=== PATIENT | female | born 1965 | race Caucasian/White ===

== ENCOUNTER 2019-01-08 11:44 | Day surgery (SDC) | payer MEDICARE, MEDICAID ==
[~2019-01-08] VITALS: Ht 157.5 cm; Wt 120.5 kg
[~2019-01-08 11:44] MED LIST: ABILIFY15 MG PO; DESERYL100 MG PO; PAXIL10 MG; PROTONIX20 MG PO
[2019-01-08 12:42] LABS: HEMATOCRIT 38.2 % (36.0-48.0); MCV 85.1 fL (80.0-100.0); MEAN PLATELET VOLUME 10.5 fL (7.4-10.4); RBC 4.49 10x6/uL (4.00-5.40); RDW 13.5 % (11.5-14.5); WBC 5.4 10x3/uL (4.8-10.8)
[2019-01-08] MEDS ORDERED: PEPCID40 MG (12:56)
[2019-01-08] MEDS ORDERED: TRIGLIDE160 MG PO (12:57)
[2019-01-08] MEDS ORDERED: SYNTHROID112 MCG PO (12:57)
[2019-01-08] MEDS ORDERED: PRAVACHOL40 MG PO (12:58)
[2019-01-08] MEDS ORDERED: LISINOPRIL40 MG (12:58)
[2019-01-08 13:17] VITALS: BP 130/56; Ht 157.5 cm; Wt 120.5 kg
--- NOTE | 2019-01-08 15:39 | NUR ---
1525 IV REMOVED INSTRUCTIONS GIVEN
--- NOTE | 2019-01-11 07:40 | OP ---
PATIENT NAME: ALEX ANGULO MEDICAL RECORD: [id number] :65 LOCATION:[facility] ADMISSION DATE: SURGEON: DANILO SCHNEIDER DO DATE OF OPERATION: 01/08/2019 PROCEDURE: EGD with biopsies. INDICATIONS FOR PROCEDURE: An 8 week followup of esophageal ulcers and gastric ulcers. SCOPE: Olympus video gastroscope. MEDICATIONS: Propofol 220 mg IV per anesthesia. ESTIMATED BLOOD LOSS: Minimal. COMPLICATIONS: None. FINDINGS: Informed consent was given. The patient was made comfortable with the above medication. After reaching an adequate level of sedation by slow IV push, the patient was placed in the left side. The endoscope was advanced under direct visualization through the mouth to the second portion of the duodenum. The entire esophagus appeared normal. At the GE junction, the previously identified ulcers appeared healed. There were some minor reflux changes consistent with LA class A reflux-induced esophagitis. The endoscope was advanced beyond the GE junction into the stomach and retroflexed to view the cardia, which revealed a small sliding hiatal hernia. There were no associated ulcerations with this hernia. The fundus and body of the stomach appeared normal. As you approached the antrum and prepyloric regions of the stomach, there was some erythema and granularity consistent with gastritis. There were no ulcers visualized. Random cold forceps biopsies were taken from the antrum and incisura to rule out the presence of H. pylori and to submit for histopathology. The endoscope was advanced beyond the pylorus into the duodenum, which appeared normal down to the second portion. The endoscope was withdrawn from the patient. The patient tolerated the procedure well and there were no complications. IMPRESSION: 1. LA class A reflux-induced esophagitis. 2. Small sliding hiatal hernia. 3. Mild gastritis of the antrum and prepyloric region. PLAN AND RECOMMENDATIONS: 1. Discharge home when recovery parameters are met. 2. GERD diet and reflux precautions. 3. Continue current medications. 4. Follow up in GI clinic as needed. TRANSINT:[id number] Voice Confirmation ID: [id number] DOCUMENT ID: [id number] OPERATIVE REPORT [id number] ALEX ANGULO DANILO SCHNEIDER DO at 0740 CC: [id number] DICTATION DATE: 01/08/19 1421 AUTOMOTIVE SALESPERSON: 01/08/19 1752 [facility] 01/08/[address] [facility] [address] [place] [address]
== END 2019-01-08 15:52 | disposition home or self-care (01) ==
LOC: D.OPS 11:44
PROVIDERS: Anesthesiology; ATTEND Internal Medicine Gastroenterology
DX: K22.10 Ulcer of esophagus without bleeding (principal); K25.9 Gastric ulcer, unspecified as acute or chronic, without hemorrhage or perforation; Z01.812 Encounter for preprocedural laboratory examination

== ENCOUNTER → 2020-08-29 | Emergency (ER) | payer MEDICARE, MEDICAID ==
[~2020-08-29] VITALS: Ht 157.5 cm; Wt 113.6 kg
[~2020-08-29] MED LIST changes: +AMITRIPTYLINE H50 MG PO; +LIPITOR20 MG PO; +LISINOPRIL40 MG; +PEPCID40 MG; +PHENERGAN25 M1 PO; +PRAVACHOL40 MG PO; +SYNTHROID112 MCG PO; +TRIGLIDE160 MG PO
[2020-08-29 05:32] VITALS: Ht 157.5 cm; Wt 113.6 kg
[2020-08-29 06:30] VITALS: BP 86/31
== END | disposition home or self-care (01) ==
LOC: D.ER 05:31
DX: R51.9 Headache, unspecified (principal); I10 Essential (primary) hypertension; J44.9 Chronic obstructive pulmonary disease, unspecified; E78.5 Hyperlipidemia, unspecified; K21.9 Gastro-esophageal reflux disease without esophagitis